=== PATIENT | female | born 1955 | race Hispanic/Latino ===

== ENCOUNTER 2021-05-06 15:48 | Emergency (ER) | payer OTHER ==
[~2021-05-06] VITALS: Ht 167.6 cm; Wt 105.7 kg
[2021-05-06 17:12] LABS: BASOPHILS % 0.3 % (0.0-1.0); EOSINOPHILS # (AUTO) 0.2 (0.0-0.4); EOSINOPHILS % 1.4 % (0.0-6.0); HEMATOCRIT 42.5 % (34.2-44.1); HEMOGLOBIN 13.3 g/dL (12.0-16.0); LYMPHOCYTES # (AUTO) 2.6 (1.0-3.2); LYMPHOCYTES % 21.5 % (18.0-39.1); MEAN CORPUSCULAR HEMOGLOBIN 27.2 pg (28-32); MEAN CORPUSCULAR HGB CONC 31.3 g/dL (31-35); MEAN CORPUSCULAR VOLUME 86.9 fL (81-99); MONOCYTES # (AUTO) 0.7 (0.2-0.8); MONOCYTES % 5.4 % (4.4-11.3); NEUTROPHILS # (AUTO) 8.6 (2.1-6.9); NEUTROPHILS % 70.9 % (38.7-80.0); PLATELET COUNT 236 x10e3/uL (140-360); RED BLOOD COUNT 4.89 x10e6/uL (3.6-5.1); RED CELL DISTRIBUTION WIDTH 13.3 % (11.7-14.4)
[2021-05-06 17:20] LABS: INR 0.95; PROTHROMBIN TIME 13.1 seconds (11.9-14.5)
[2021-05-06 17:21] LABS: PARTIAL THROMBOPLASTIN TIME 34.1 seconds (23.8-35.5)
[2021-05-06 17:28] LABS: ALBUMIN/GLOBULIN RATIO 1.4 (0.8-2.0); CALCIUM 8.9 mg/dL (8.4-10.2); CREATININE, SERUM 1.15 mg/dL (0.57-1.11)
[2021-05-06] MEDS ORDERED: KETOROLAC TROMETHAMINE 30 MG/ML VIAL IV STA (17:39)
[2021-05-06] MEDS ORDERED: KETOROLAC TROMETHAMINE 30 MG/ML VIAL ONE (17:56)
[2021-05-06 18:46] LABS: CLARITY,URINE SL CLOUDY (CLEAR); COLOR,URINE YELLOW (YELLOW); KETONES,URINE 1+ (NEGATIVE); LEUKOCYTE ESTERASE ,URINE TRACE (NEGATIVE); NITRITE,URINE NEGATIVE (NEGATIVE); PROTEIN,URINE DIPSTICK NEGATIVE (NEGATIVE); URINE UROBILINOGEN 1 mg/dL (0.2 - 1)
[2021-05-06 18:55] LABS: BACTERIA,URINE MANY /HPF; EPITHELIAL CELLS,URINE FEW /LPF; MUCUS,URINE MANY (RARE); RENAL EPITHELIAL CELLS,URINE FEW
[2021-05-06 19:32] VITALS: BP 131/59
== END 2021-05-06 19:33 | disposition home or self-care (01) ==
LOC: ER 17:09
DX: R07.89 Other chest pain (principal); E11.65 Type 2 diabetes mellitus with hyperglycemia; Z20.822 Contact with and (suspected) exposure to COVID-19; R94.31 Abnormal electrocardiogram [ECG] [EKG]
CPT/HCPCS: 36415; 71045; 80053; 81001; 82550; 82553; 83880; 84484; 85025; 85610; 85730; 99284; J1885; U0002

== ENCOUNTER 2021-10-09 14:25 | Emergency (ER) | payer OTHER ==
[~2021-10-09] VITALS: Ht 167.6 cm; Wt 105.7 kg
[2021-10-09] MEDS ORDERED: PREDNISONE 20 MG TAB PO NR (14:45)
[2021-10-09] MEDS ORDERED: KETOROLAC TROMETHAMINE 30 MG/ML VIAL IM NR (14:45)
[2021-10-09] MEDS ORDERED: ACETAMINOPHEN 325 MG TAB PO NR (14:45)
[2021-10-09] MEDS ORDERED: ULTRAM 50MG50 MG PO (15:37)
[2021-10-09] MEDS ORDERED: PREDNISONE20 MG PO (15:37)
[2021-10-09] MEDS ORDERED: IBUPROFEN400 MG PO (15:37)
[2021-10-09] MEDS ORDERED: HYDROCODONE/APAP 7.5MG-325MG 1 EA TAB PO PRN (16:00)
[2021-10-09 16:46] VITALS: BP 137/55
== END 2021-10-09 16:48 | disposition home or self-care (01) ==
LOC: ER 14:30
DX: M54.31 Sciatica, right side (principal); M16.11 Unilateral primary osteoarthritis, right hip; M25.561 Pain in right knee; E11.9 Type 2 diabetes mellitus without complications
CPT/HCPCS: 73502; 73562; 99283; J1885; J7512

== ENCOUNTER 2022-05-31 11:27 | Emergency (ER) | payer OTHER ==
[~2022-05-31] VITALS: Ht 167.6 cm; Wt 100.7 kg
[~2022-05-31 11:27] MED LIST: ACETAMINOPHEN-1 EAC4 PO; IBUPROFEN400 MG PO; METHOCARBAMOL750 MG PO; PREDNISONE20 MG PO; PREDNISONE50 MG PO; ULTRAM 50MG50 MG PO
[2022-05-31] MEDS ORDERED: IBUPROFEN 400 MG TAB PO ONE (11:45)
[2022-05-31] MEDS ORDERED: CYCLOBENZAPRINE HCL 10 MG TAB PO ONE (11:45)
[2022-05-31] MEDS ORDERED: ACETAMINOPHEN/CODEINE 300MG - 30MG TAB PO ONE (11:45)
[2022-05-31] MEDS ORDERED: ACETAMINOPHEN/CODEINE 300MG - 30MG TAB ONE (11:59)
[2022-05-31] MEDS ORDERED: IBUPROFEN 400 MG TAB ONE (11:59)
[2022-05-31] MEDS ORDERED: CYCLOBENZAPRINE HCL 10 MG TAB ONE (11:59)
[2022-05-31] MEDS ORDERED: METHOCARBAMOL500 MG PO (14:35)
[2022-05-31] MEDS ORDERED: NAPROSYN500 MG PO (14:35)
== END 2022-05-31 14:48 | disposition home or self-care (01) ==
LOC: ER 11:39
DX: M25.551 Pain in right hip (principal); M54.41 Lumbago with sciatica, right side; M47.816 Spondylosis without myelopathy or radiculopathy, lumbar region
CPT/HCPCS: 72100; 99283

== ENCOUNTER 2024-02-22 07:33 | Emergency (ER) | payer MEDICARE ==
[~2024-02-22] VITALS: Ht 167.6 cm; Wt 90.3 kg
[~2024-02-22 07:33] MED LIST changes: +AMIODARONE HCL200 MG PO; +ATORVASTATIN CA40 MG PO; +CEFDINIR300 MG PO; +ELIQUIS5 MG PO; +GABAPENTIN800 MG PO; +GLIMEPIRIDE2 MG PO; +KEFLEX PO; +KEFLEX125 MG/5 M PO; +LOPRESSOR25 MG PO; +METFORMIN HCL500 MG PO; +METHOCARBAMOL500 MG PO; +NAPROSYN500 MG PO; +ONDANSETRON ODT4 MG SL
[2024-02-22 07:51] VITALS: TEMP 99.1
[2024-02-22] MEDS: KETOROLAC TROMETHAMINE 30 MG/ML VIAL IV STA (08:40)
[2024-02-22] MEDS: SODIUM CHLORIDE 0.9% 1000ML 1,000 ML IV SCH (08:40)
[2024-02-22 09:14] LABS: BASOPHILS % 0.3 % (0.0-1.0); EOSINOPHILS # (AUTO) 0.1 (0.0-0.4); EOSINOPHILS % 0.7 % (0.0-6.0); HEMATOCRIT 42.9 % (34.2-44.1); HEMOGLOBIN 13.8 g/dL (12.0-16.0); LYMPHOCYTES # (AUTO) 1.6 (1.0-3.2); LYMPHOCYTES % 13.4 % (18.0-39.1); MEAN CORPUSCULAR HEMOGLOBIN 27.7 pg (28-32); MEAN CORPUSCULAR HGB CONC 32.2 g/dL (31-35); MEAN CORPUSCULAR VOLUME 86.1 fL (81-99); MONOCYTES # (AUTO) 0.9 (0.2-0.8); MONOCYTES % 7.7 % (4.4-11.3); NEUTROPHILS # (AUTO) 9.1 (2.1-6.9); NEUTROPHILS % 77.6 % (38.7-80.0); PLATELET COUNT 169 x10e3/uL (140-360); RED BLOOD COUNT 4.98 x10e6/uL (3.6-5.1); WHITE BLOOD COUNT 11.68 x10e3/uL (4.8-10.8)
[2024-02-22 09:41] LABS: ALBUMIN 3.4 g/dL (3.5-5.0); ALBUMIN/GLOBULIN RATIO 0.9 (0.8-2.0); ANION GAP 15.1 mmol/L (8-16); BILIRUBIN,TOTAL 1.6 mg/dL (0.2-1.2); CALCIUM 9.1 mg/dL (8.4-10.2); CREATININE, SERUM 1.05 mg/dL (0.57-1.11); INFLUENZAE A&B ANTIGEN (RAPID) NEGATIVE (NEGATIVE); POTASSIUM 4.1 mmol/L (3.5-5.1); RESPIRATORY SYNC. VIRUS NEGATIVE (NEGATIVE); TOTAL PROTEIN 7.1 g/dL (6.5-8.1)
[2024-02-22 09:50] LABS: BILIRUBIN,URINE SMALL (NEGATIVE); CLARITY,URINE CLOUDY (CLEAR); COLOR,URINE YELLOW (YELLOW); GLUCOSE, URINE NEGATIVE (NEGATIVE); KETONES,URINE 1+ (NEGATIVE); LEUKOCYTE ESTERASE ,URINE MODERATE (NEGATIVE); NITRITE,URINE NEGATIVE (NEGATIVE); PH,URINE 5.5 (5 - 7); PROTEIN,URINE DIPSTICK 1+ (NEGATIVE); URINE UROBILINOGEN 0.2 mg/dL (0.2 - 1)
[2024-02-22 09:51] LABS: RBC,URINE 0-5 /HPF (0-5); WBC,URINE (MAN) >50 /HPF (0-5)
[2024-02-22 09:52] LABS: BACTERIA,URINE MODERATE /HPF; EPITHELIAL CELLS,URINE MANY /LPF; TRANSITIONAL EPI CELLS,URINE MODERATE
[2024-02-22] MEDS ORDERED: CEFDINIR300 MG PO (10:35)
[2024-02-22] MEDS ORDERED: DOXYCYCLINE HY100 MG PO (10:35)
[2024-02-22 10:55] VITALS: PULSE 77; RESP 15; O2SAT 100
== END 2024-02-22 11:25 | disposition home or self-care (01) ==
LOC: ER 07:41
DX: R50.9 Fever, unspecified (principal); N39.0 Urinary tract infection, site not specified; R11.0 Nausea; I10 Essential (primary) hypertension; E11.65 Type 2 diabetes mellitus with hyperglycemia; E78.5 Hyperlipidemia, unspecified; Z11.52 Encounter for screening for COVID-19; Z96.651 Presence of right artificial knee joint
CPT/HCPCS: 36415; 71045; 80053; 81001; 82948; 85025; 87400; 87420; 99284; J1885; J7030; U0002